=== PATIENT | male | born 1960 | race Caucasian/White ===

== ENCOUNTER 2022-12-19 09:13 | Inpatient (IN) | payer OTHER, MEDICARE ==
[~2022-12-19] VITALS: Ht 180.3 cm; Wt 88.5 kg
[2022-12-19] MEDS ORDERED: SODIUM CHLORIDE 0.9% 1000ML 1,000 ML IV STA (09:43)
[2022-12-19] MEDS ORDERED: ONDANSETRON HCL INJ 2MG/ML 2ML 2 MG/ML VIAL IV STA (09:43)
[2022-12-19] MEDS ORDERED: KETOROLAC TROMETHAMINE 30 MG/ML VIAL IV STA (09:43)
[2022-12-19] MEDS ORDERED: CEFTRIAXONE 1 GM VIAL ONE ×2 (09:58→15:34)
[2022-12-19 10:07] LABS: BASOPHILS # (AUTO) 0.1 (0.0-0.1); BASOPHILS % 0.2 % (0.0-1.0); HEMOGLOBIN 12.6 g/dL (14.0-18.0); LYMPHOCYTES % 2.7 % (18.0-39.1); MEAN CORPUSCULAR HEMOGLOBIN 31.9 pg (28-32); MEAN CORPUSCULAR HGB CONC 34.1 g/dL (31-35); MEAN CORPUSCULAR VOLUME 93.7 fL (81-99); MONOCYTES # (AUTO) 1.1 (0.2-0.8); MONOCYTES % 2.9 % (4.4-11.3); NEUTROPHILS # (AUTO) 35.6 (2.1-6.9); NEUTROPHILS % 93.3 % (38.7-80.0); PLATELET COUNT 553 x10e3/uL (140-360); RED BLOOD COUNT 3.95 x10e6/uL (4.3-5.7)
[2022-12-19 10:13] LABS: ALBUMIN 3.2 g/dL (3.5-5.0); ALBUMIN/GLOBULIN RATIO 0.6 (0.8-2.0); ANION GAP 17.2 mmol/L (8-16); CALCIUM 10.3 mg/dL (8.4-10.2); CREATININE, SERUM 1.57 mg/dL (0.72-1.25); MAGNESIUM 1.9 MG/DL (1.3-2.1); POTASSIUM 4.2 mmol/L (3.5-5.1)
[2022-12-19 10:24] LABS: CLARITY,URINE TURBID (CLEAR); COLOR,URINE YELLOW (YELLOW); KETONES,URINE NEGATIVE (NEGATIVE); LEUKOCYTE ESTERASE ,URINE SMALL (NEGATIVE); NITRITE,URINE NEGATIVE (NEGATIVE); PROTEIN,URINE DIPSTICK 2+ (NEGATIVE); URINE UROBILINOGEN 0.2 mg/dL (0.2 - 1)
[2022-12-19 10:25] LABS: BACTERIA,URINE MANY /HPF
[2022-12-19 10:28] LABS: TRIPLE PHOSPHATE CRYSTAL,UR FEW (FEW)
[2022-12-19] MEDS ORDERED: CEFTRIAXONE 1 GM VIAL IM ONE (10:45)
[2022-12-19 11:38] LABS: LYMPHOCYTES % (MANUAL) 2 % (19-48); MONOCYTES % (MANUAL) 3 % (3.4-9.0); NEUTROPHILS % (MANUAL) 95 % (40-74); PLATELET ESTIMATE SLIGHTLY INCREASED; PLATELET MORPHOLOGY COMMENT NORMAL; RBC MORPHOLOGY COMMENT NORMAL
[2022-12-19] MEDS ORDERED: ACETAMINOPHEN 1000 MG/100 ML IV PRN (11:45)
[2022-12-19] MEDS ORDERED: Vancomycin IV 1 GM in SODIUM CHLORIDE 0.9% 250ML 250 ML IV ONE (11:45)
[2022-12-19] MEDS: MEROPENEM 1 GM in SODIUM CHLORIDE 0.9% 100 ML IV SCH ×2 (11:48→20:55)
[2022-12-19 12:04] LABS: INR 1.12; PROTHROMBIN TIME 14.9 seconds (11.9-14.5)
[2022-12-19 12:05] LABS: PARTIAL THROMBOPLASTIN TIME 33.3 seconds (23.8-35.5)
[2022-12-19] MEDS: Morphine 2mg Syringe 2 MG/ML SYR IV PRN ×2 (13:02→23:43)
[2022-12-19] MEDS: ONDANSETRON HCL INJ 2MG/ML 2ML 2 MG/ML VIAL IV PRN ×2 (13:03→23:43)
[2022-12-19] MEDS: SODIUM CHLORIDE 0.9% 1000ML 1,000 ML IV SCH ×2 (13:03→20:58)
[2022-12-19 14:15] VITALS: BP 194/61
[2022-12-19 15:26] VITALS: BP 189/67
[2022-12-19] MEDS ORDERED: SODIUM CHLORIDE 0.9% 250ML 250 ML ONE ×2 (15:30→15:35)
[2022-12-19] MEDS ORDERED: LIDOCAINE HCL 1% LOCAL INJ 20 ML VIAL ONE (15:30)
[2022-12-19] MEDS ORDERED: MIDAZOLAM HCL 2 MG/2 ML VIAL ONE (15:34)
[2022-12-19] MEDS ORDERED: FENTANYL CITRATE/PF 100MCG/2 ML INJ ONE (15:35)
[2022-12-19] MEDS ORDERED: FENOFIBRATE145 MG PO (15:54)
[2022-12-19] MEDS ORDERED: DONEPEZIL HCL10 MG PO (15:54)
[2022-12-19] MEDS ORDERED: SIMVASTATIN20 MG PO (15:54)
[2022-12-19 16:15] VITALS: BP 189/67
[2022-12-19 16:16] VITALS: BP 189/67
[2022-12-19] MEDS ORDERED: IOPAMIDOL 610MG/1ML 300 MG/ML VIAL IV ONE (16:30)
[2022-12-19 20:00] VITALS: BP 174/61
[2022-12-19] MEDS: DONEPEZIL HCL 5 MG TAB PO SCH (20:55)
[2022-12-19] MEDS: FENOFIBRATE 145 MG TAB PO SCH (20:55)
[2022-12-19] MEDS: CLONIDINE HCL 0.1 MG TAB PO PRN (20:57)
[2022-12-19 21:00] VITALS: BP 174/61
[2022-12-20] VITALS (7 sets, daily range): BP systolic 159–184; BP diastolic 57–73
[2022-12-20] MEDS: ONDANSETRON HCL INJ 2MG/ML 2ML 2 MG/ML VIAL IV PRN ×2 (05:16→20:33)
[2022-12-20] MEDS: Morphine 2mg Syringe 2 MG/ML SYR IV PRN ×2 (05:16→20:34)
[2022-12-20] MEDS: HYDRALAZINE HCL 20 MG/ML VIAL IV PRN ×2 (05:20→15:58)
[2022-12-20] MEDS: SODIUM CHLORIDE 0.9% 1000ML 1,000 ML IV SCH ×3 (05:20→20:32)
[2022-12-20 06:25] LABS: BASOPHILS % 0.1 % (0.0-1.0); EOSINOPHILS % 0.1 % (0.0-6.0); HEMATOCRIT 31.3 % (38.2-49.6); HEMOGLOBIN 10.7 g/dL (14.0-18.0); LYMPHOCYTES # (AUTO) 1.3 (1.0-3.2); LYMPHOCYTES % 4.6 % (18.0-39.1); MEAN CORPUSCULAR HEMOGLOBIN 31.8 pg (28-32); MEAN CORPUSCULAR HGB CONC 34.2 g/dL (31-35); MEAN CORPUSCULAR VOLUME 92.9 fL (81-99); MONOCYTES # (AUTO) 0.8 (0.2-0.8); NEUTROPHILS # (AUTO) 24.9 (2.1-6.9); NEUTROPHILS % 91.6 % (38.7-80.0); PLATELET COUNT 361 x10e3/uL (140-360); RED BLOOD COUNT 3.37 x10e6/uL (4.3-5.7); RED CELL DISTRIBUTION WIDTH 13.8 % (11.7-14.4)
[2022-12-20 06:42] LABS: ALBUMIN 2.5 g/dL (3.5-5.0); ALBUMIN/GLOBULIN RATIO 0.6 (0.8-2.0); ANION GAP 12.6 mmol/L (8-16); CALCIUM 8.7 mg/dL (8.4-10.2); CREATININE, SERUM 0.92 mg/dL (0.72-1.25); POTASSIUM 3.6 mmol/L (3.5-5.1)
[2022-12-20] MEDS: SIMVASTATIN 20 MG TAB PO SCH (08:38)
[2022-12-20] MEDS: MEROPENEM 1 GM in SODIUM CHLORIDE 0.9% 100 ML IV SCH ×2 (08:38→20:33)
[2022-12-20 11:13] LABS: BAND NEUTROPHILS % (MANUAL) 5 %; LYMPHOCYTES % (MANUAL) 5 % (19-48); MONOCYTES % (MANUAL) 2 % (3.4-9.0); NEUTROPHILS % (MANUAL) 88 % (40-74)
[2022-12-20 11:15] LABS: PLATELET ESTIMATE ADEQUATE; PLATELET MORPHOLOGY COMMENT NORMAL
[2022-12-20] MEDS ORDERED: BISACODYL 5 MG TAB EC PO ONE (14:45)
[2022-12-20] MEDS: CLONIDINE HCL 0.1 MG TAB PO PRN (15:58)
[2022-12-20] MEDS: DONEPEZIL HCL 5 MG TAB PO SCH (20:33)
[2022-12-20] MEDS: FENOFIBRATE 145 MG TAB PO SCH (20:33)
[2022-12-21] VITALS (7 sets, daily range): BP systolic 143–191; BP diastolic 58–67
[2022-12-21] MEDS: SODIUM CHLORIDE 0.9% 1000ML 1,000 ML IV SCH ×3 (06:23→21:31)
[2022-12-21] MEDS: MEROPENEM 1 GM in SODIUM CHLORIDE 0.9% 100 ML IV SCH ×2 (08:46→21:25)
[2022-12-21] MEDS: SIMVASTATIN 20 MG TAB PO SCH ×2 (08:56→08:57)
[2022-12-21 13:54] LABS: BASOPHILS % 0.2 % (0.0-1.0); EOSINOPHILS # (AUTO) 0.1 (0.0-0.4); EOSINOPHILS % 0.5 % (0.0-6.0); HEMATOCRIT 32.8 % (38.2-49.6); LYMPHOCYTES # (AUTO) 1.9 (1.0-3.2); LYMPHOCYTES % 12.6 % (18.0-39.1); MEAN CORPUSCULAR HEMOGLOBIN 31.4 pg (28-32); MEAN CORPUSCULAR HGB CONC 33.5 g/dL (31-35); MEAN CORPUSCULAR VOLUME 93.7 fL (81-99); MONOCYTES # (AUTO) 0.9 (0.2-0.8); MONOCYTES % 5.6 % (4.4-11.3); NEUTROPHILS # (AUTO) 12.4 (2.1-6.9); NEUTROPHILS % 80.6 % (38.7-80.0); PLATELET COUNT 360 x10e3/uL (140-360); RED CELL DISTRIBUTION WIDTH 13.9 % (11.7-14.4)
[2022-12-21 14:26] LABS: CREATININE, SERUM 0.83 mg/dL (0.72-1.25)
[2022-12-21] MEDS: CLONIDINE HCL 0.1 MG TAB PO PRN (21:27)
[2022-12-21] MEDS: FENOFIBRATE 145 MG TAB PO SCH (21:27)
[2022-12-21] MEDS: DONEPEZIL HCL 5 MG TAB PO SCH (21:27)
[2022-12-22] MEDS ORDERED: BISACODYL 10 MG SUPP PR ONE ×2 (00:45→17:00)
[2022-12-22] MEDS: BISACODYL 10 MG SUPP PR PRN ×2 (01:31→17:00)
[2022-12-22 06:46] LABS: BASOPHILS % 0.3 % (0.0-1.0); EOSINOPHILS # (AUTO) 0.1 (0.0-0.4); EOSINOPHILS % 0.5 % (0.0-6.0); HEMOGLOBIN 10.4 g/dL (14.0-18.0); LYMPHOCYTES # (AUTO) 1.6 (1.0-3.2); LYMPHOCYTES % 12.7 % (18.0-39.1); MEAN CORPUSCULAR HEMOGLOBIN 32.5 pg (28-32); MEAN CORPUSCULAR HGB CONC 33.5 g/dL (31-35); MEAN CORPUSCULAR VOLUME 96.9 fL (81-99); MONOCYTES # (AUTO) 0.7 (0.2-0.8); MONOCYTES % 5.7 % (4.4-11.3); NEUTROPHILS # (AUTO) 10.3 (2.1-6.9); NEUTROPHILS % 80.3 % (38.7-80.0); PLATELET COUNT 337 x10e3/uL (140-360); RED CELL DISTRIBUTION WIDTH 13.8 % (11.7-14.4)
[2022-12-22 07:10] LABS: ANION GAP 13.5 mmol/L (8-16); CALCIUM 8.8 mg/dL (8.4-10.2); CREATININE, SERUM 0.85 mg/dL (0.72-1.25); POTASSIUM 3.5 mmol/L (3.5-5.1)
[2022-12-22 07:30] VITALS: BP 191/62
[2022-12-22 07:33] LABS: CHOL/HDL RATIO 3.6 (3.9-4.7); MAGNESIUM 1.6 MG/DL (1.3-2.1)
[2022-12-22 07:54] LABS: THYROID STIMULATING HORMONE 0.947 uIU/mL (0.350-4.940)
[2022-12-22] MEDS: NICOTINE 21 MG/EA PATCH TOP SCH (09:00)
[2022-12-22] MEDS: MEROPENEM 1 GM in SODIUM CHLORIDE 0.9% 100 ML IV SCH ×2 (09:36→21:00)
[2022-12-22] MEDS: SIMVASTATIN 20 MG TAB PO SCH (09:36)
[2022-12-22 09:51] VITALS: BP 169/58
[2022-12-22] MEDS: SODIUM CHLORIDE 0.9% 1000ML 1,000 ML IV SCH (11:37)
[2022-12-22] MEDS: AMLODIPINE BESYLATE 5 MG TAB PO SCH (11:37)
[2022-12-22 12:31] VITALS: BP 184/63
[2022-12-22] MEDS ORDERED: MAGNESIUM SULFATE 2GM/50ML 50 ML IV ONE (16:15)
[2022-12-22] MEDS ORDERED: MAGNESIUM HYDROXIDE 30 ML UDC PO ONE (17:00)
[2022-12-22] MEDS ORDERED: POTASSIUM CHLORIDE 20 MEQ TAB CR PO ONE (18:30)
[2022-12-22 20:00] VITALS: BP 174/78
[2022-12-22] MEDS: FENOFIBRATE 145 MG TAB PO SCH (21:58)
[2022-12-22] MEDS: DONEPEZIL HCL 5 MG TAB PO SCH (21:58)
[2022-12-23] MEDS: CLONIDINE HCL 0.1 MG TAB PO PRN (03:50)
[2022-12-23 04:00] VITALS: BP 193/68
[2022-12-23 06:11] LABS: BASOPHILS # (AUTO) 0.1 (0.0-0.1); BASOPHILS % 0.4 % (0.0-1.0); EOSINOPHILS # (AUTO) 0.1 (0.0-0.4); EOSINOPHILS % 0.9 % (0.0-6.0); HEMATOCRIT 32.7 % (38.2-49.6); HEMOGLOBIN 11.2 g/dL (14.0-18.0); LYMPHOCYTES # (AUTO) 2.5 (1.0-3.2); LYMPHOCYTES % 19.9 % (18.0-39.1); MEAN CORPUSCULAR HEMOGLOBIN 31.5 pg (28-32); MEAN CORPUSCULAR HGB CONC 34.3 g/dL (31-35); MEAN CORPUSCULAR VOLUME 92.1 fL (81-99); MONOCYTES # (AUTO) 0.7 (0.2-0.8); MONOCYTES % 5.3 % (4.4-11.3); NEUTROPHILS % 72.9 % (38.7-80.0); PLATELET COUNT 370 x10e3/uL (140-360); RED BLOOD COUNT 3.55 x10e6/uL (4.3-5.7); RED CELL DISTRIBUTION WIDTH 13.5 % (11.7-14.4)
[2022-12-23 06:47] LABS: ANION GAP 13.3 mmol/L (8-16); CALCIUM 8.6 mg/dL (8.4-10.2); CREATININE, SERUM 0.79 mg/dL (0.72-1.25); MAGNESIUM 1.7 MG/DL (1.3-2.1); PHOSPHORUS 2.3 MG/DL (2.3-4.7); POTASSIUM 3.3 mmol/L (3.5-5.1)
[2022-12-23 06:53] LABS: HIV 1&2 AB SCREEN NON-REACTIVE (NONREACTIVE)
[2022-12-23 08:14] VITALS: BP 156/67
[2022-12-23 08:29] VITALS: BP 156/67
[2022-12-23] MEDS: AMLODIPINE BESYLATE 5 MG TAB PO SCH (08:39)
[2022-12-23] MEDS: SIMVASTATIN 20 MG TAB PO SCH (08:39)
[2022-12-23] MEDS: MEROPENEM 1 GM in SODIUM CHLORIDE 0.9% 100 ML IV SCH (08:39)
[2022-12-23] MEDS: NICOTINE 21 MG/EA PATCH TOP SCH (08:40)
[2022-12-23] MEDS ORDERED: ONDANSETRON HCL 4 MG ORAL DISINTEGRATING TAB PO PRN (08:45)
[2022-12-23] MEDS ORDERED: MAGNESIUM SULFATE 2GM/50ML 50 ML IV ONE (09:15)
[2022-12-23] MEDS ORDERED: CIPROFLOXACIN 500 MG TAB PO SCH (09:45)
[2022-12-23] MEDS ORDERED: NORVASC5 MG PO (10:30)
[2022-12-23] MEDS ORDERED: ONDANSETRON ODT4 MG PO (10:30)
[2022-12-23] MEDS ORDERED: MAG-OXIDE400 MG PO (10:30)
[2022-12-23] MEDS ORDERED: MAGNESIUM OXIDE 400 MG TAB PO ONE (10:30)
[2022-12-23] MEDS ORDERED: NICODERM CQ1 EAC2 TOP (10:30)
[2022-12-23] MEDS ORDERED: CLONIDINE HCL0.1 MG PO (10:30)
[2022-12-23] MEDS ORDERED: CIPROFLOXACIN500 MG PO (10:30)
[2022-12-23] MEDS ORDERED: AMLODIPINE BESY10 MG PO (10:50)
[2022-12-23] MEDS ORDERED: POTASSIUM CHLORIDE 20 MEQ TAB CR PO ONE (11:30)
[2022-12-23] MEDS ORDERED: MAGNESIUM OXIDE 400 MG TAB PO SCH (17:00)
== END 2022-12-23 11:36 | disposition home or self-care (01) | DRG 872 ==
LOC: ER 09:23 → ERHOLD 11:49 → MED/SURG2 14:06
PROVIDERS: ADMIT Internal Medicine; ATTEND Internal Medicine
PROC: 0T9030Z Drainage of Right Kidney with Drainage Device, Percutaneous Approach (ICD-10-PCS; principal; 2022-12-19)
DX: A41.9 Sepsis, unspecified organism (principal); N13.2 Hydronephrosis with renal and ureteral calculous obstruction; Z16.11 Resistance to penicillins; N12 Tubulo-interstitial nephritis, not specified as acute or chronic; N39.0 Urinary tract infection, site not specified; K56.7 Ileus, unspecified; N17.9 Acute kidney failure, unspecified; Z90.6 Acquired absence of other parts of urinary tract; I49.5 Sick sinus syndrome; F03.A0 Unspecified dementia, mild, without behavioral disturbance, psychotic disturbance, mood disturbance, and anxiety; C67.9 Malignant neoplasm of bladder, unspecified; I10 Essential (primary) hypertension; D64.9 Anemia, unspecified; E78.00 Pure hypercholesterolemia, unspecified; J44.9 Chronic obstructive pulmonary disease, unspecified; F17.210 Nicotine dependence, cigarettes, uncomplicated; B96.5 Pseudomonas (aeruginosa) (mallei) (pseudomallei) as the cause of diseases classified elsewhere; E83.42 Hypomagnesemia; E87.6 Hypokalemia; Z20.822 Contact with and (suspected) exposure to COVID-19; Z93.6 Other artificial openings of urinary tract status; Z88.0 Allergy status to penicillin; Z85.46 Personal history of malignant neoplasm of prostate
CPT/HCPCS: 36415; 50432; 74018; 74176; 74470; 76942; 80048; 80053; 80061; 81001; 83735; 84100; 84443; 85025; 85610; 85730; 86803; 87040; 87086; 87186; 87340; 87390; 93306; 99152; 99153; 99284; C1769; G0433; G0435; J0696; J1885; J2001; J2185; J2250; J2270; J2405; J3475; J7030; J7050; Q0162

== ENCOUNTER → 2023-01-01 | Day surgery (SDC) | payer MEDICARE, OTHER ==
[~2023-01-01] MED LIST: ACETAMINOPHEN 1000 MG/100 ML 100 ML IV ONE; AMLODIPINE BESY10 MG PO; ATROPINE SULFATE 1 MG/ML VIAL ONE; CIPROFLOXACIN500 MG PO; CLONIDINE HCL0.1 MG PO; DEXAMETHASONE SOD PHOS INJ 4 MG/ML SDV ONE; DONEPEZIL HCL10 MG PO; EPHEDRINE SULFATE INJ 50 MG/ML VIAL ONE; FENOFIBRATE145 MG PO; FENTANYL CITRATE/PF 100MCG/2 ML INJ ONE; GENTAMICIN 80MG/NS 100 ML 200 ML IV ONE; IOPAMIDOL 610MG/1ML 300 MG/ML VIAL IV ONE; LACTATED RINGER'S 1,000 ML ONE; LIDOCAINE HCL 2% LOCAL INJ 5 ML SDV VIAL INJ ONE; MAG-OXIDE400 MG PO; MIDAZOLAM HCL 2 MG/2 ML VIAL ONE; NICODERM CQ1 EAC2 TOP; NORVASC5 MG PO; ONDANSETRON HCL INJ 2MG/ML 2ML 2 MG/ML VIAL ONE; ONDANSETRON ODT4 MG PO; POVIDONE IODINE 0.05% 0.05 % ML PO ONE; PROPOFOL IV EMULSION 10 MG/ML 20 ML VIAL ONE; SEVOFLURANE INHAL SOLN 250 ML PEN BTL ONE; SIMVASTATIN20 MG PO
[2023-01-01 08:05] VITALS: BP 130/69
== END | disposition home or self-care (01) ==
LOC: OR 05:25
PROVIDERS: ATTEND Urology
DX: N20.1 Calculus of ureter (principal); Z93.6 Other artificial openings of urinary tract status; N39.0 Urinary tract infection, site not specified; Z85.51 Personal history of malignant neoplasm of bladder; R03.0 Elevated blood-pressure reading, without diagnosis of hypertension; Z88.0 Allergy status to penicillin; Z79.899 Other long term (current) drug therapy; Z87.891 Personal history of nicotine dependence; Z84.1 Family history of disorders of kidney and ureter
CPT/HCPCS: 50590; J0131; J0461; J1100; J1580; J2001; J2250; J2405; J2704; J3010; J7121

== ENCOUNTER → 2023-01-11 | Outpatient (CLI) | payer OTHER ==
[~2023-01-11] MED LIST changes: -ACETAMINOPHEN 1000 MG/100 ML 100 ML IV ONE; -ATROPINE SULFATE 1 MG/ML VIAL ONE; -DEXAMETHASONE SOD PHOS INJ 4 MG/ML SDV ONE; -EPHEDRINE SULFATE INJ 50 MG/ML VIAL ONE; -FENTANYL CITRATE/PF 100MCG/2 ML INJ ONE; -GENTAMICIN 80MG/NS 100 ML 200 ML IV ONE; +IOPAMIDOL 370 MG/ML 100 ML INFUS..BTL INJ ONE; -IOPAMIDOL 610MG/1ML 300 MG/ML VIAL IV ONE; -LACTATED RINGER'S 1,000 ML ONE; +LIDOCAINE HCL 1% LOCAL INJ 20 ML VIAL ONE; -LIDOCAINE HCL 2% LOCAL INJ 5 ML SDV VIAL INJ ONE; -MIDAZOLAM HCL 2 MG/2 ML VIAL ONE; -ONDANSETRON HCL INJ 2MG/ML 2ML 2 MG/ML VIAL ONE; -POVIDONE IODINE 0.05% 0.05 % ML PO ONE; -PROPOFOL IV EMULSION 10 MG/ML 20 ML VIAL ONE; -SEVOFLURANE INHAL SOLN 250 ML PEN BTL ONE; +SODIUM CHLORIDE 0.9% 250ML 250 ML ONE
== END ==
LOC: DX 10:21
PROVIDERS: ATTEND Urology
DX: N13.30 Unspecified hydronephrosis (principal); T19.9XXD Foreign body in genitourinary tract, part unspecified, subsequent encounter
CPT/HCPCS: C1729; C1769; J2001; J7050; Q9967; 50435

== ENCOUNTER → 2023-12-17 | Day surgery (SDC) | payer MEDICARE, BC ==
[2023-12-13 13:16] LABS: BASOPHILS # (AUTO) 0.1 (0.0-0.1); BASOPHILS % 0.8 % (0.0-1.0); EOSINOPHILS # (AUTO) 0.3 (0.0-0.4); HEMATOCRIT 37.8 % (38.2-49.6); HEMOGLOBIN 12.9 g/dL (14.0-18.0); LYMPHOCYTES # (AUTO) 2.8 (1.0-3.2); LYMPHOCYTES % 30.9 % (18.0-39.1); MEAN CORPUSCULAR HEMOGLOBIN 32.1 pg (28-32); MEAN CORPUSCULAR HGB CONC 34.1 g/dL (31-35); MONOCYTES # (AUTO) 0.8 (0.2-0.8); MONOCYTES % 8.2 % (4.4-11.3); NEUTROPHILS # (AUTO) 5.2 (2.1-6.9); NEUTROPHILS % 56.9 % (38.7-80.0); PLATELET COUNT 249 x10e3/uL (140-360); RED BLOOD COUNT 4.02 x10e6/uL (4.3-5.7); RED CELL DISTRIBUTION WIDTH 13.6 % (11.7-14.4)
[~2023-12-17] MED LIST changes: +ACETAMINOPHEN 1000 MG/100 ML 100 ML IV ONE; +CEPHALEXIN500 MG PO; +CRESTOR10 MG PO; +DEXAMETHASONE SOD PHOS INJ 4 MG/ML SDV ONE; +EPHEDRINE SULFATE INJ 50 MG/ML VIAL ONE; +FENTANYL CITRATE/PF 100MCG/2 ML INJ ONE; +GENTAMICIN 80MG/NS 100 ML 100 ML IV ONE; -IOPAMIDOL 370 MG/ML 100 ML INFUS..BTL INJ ONE; +LACTATED RINGER'S 1,000 ML ONE; -LIDOCAINE HCL 1% LOCAL INJ 20 ML VIAL ONE; +LIDOCAINE HCL 2% LOCAL INJ 5 ML SDV VIAL INJ ONE; +MULTI-VITAMIN1 EACH PO; +MUPIROCIN22 GM TOP; +NAMENDA10 MG PO; +ONDANSETRON HCL INJ 2MG/ML 2ML 2 MG/ML VIAL ONE; +PROPOFOL IV EMULSION 10 MG/ML 20 ML VIAL ONE; +SEVOFLURANE INHAL SOLN 250 ML PEN BTL ONE; -SODIUM CHLORIDE 0.9% 250ML 250 ML ONE; +SULFA PO; +TRIMETHOPRIM PO
[2023-12-17 08:26] VITALS: BP 129/86; PULSE 48; RESP 18; O2SAT 98
== END | disposition home or self-care (01) ==
LOC: OR 05:20
PROVIDERS: ATTEND Urology
DX: N20.0 Calculus of kidney (principal); Z98.890 Other specified postprocedural states; N39.0 Urinary tract infection, site not specified; I10 Essential (primary) hypertension; E78.5 Hyperlipidemia, unspecified; G47.33 Obstructive sleep apnea (adult) (pediatric); F03.90 Unspecified dementia, unspecified severity, without behavioral disturbance, psychotic disturbance, mood disturbance, and anxiety; Z88.0 Allergy status to penicillin; Z01.810 Encounter for preprocedural cardiovascular examination; Z01.812 Encounter for preprocedural laboratory examination; Z01.818 Encounter for other preprocedural examination; Z79.899 Other long term (current) drug therapy; Z85.46 Personal history of malignant neoplasm of prostate; Z85.51 Personal history of malignant neoplasm of bladder
CPT/HCPCS: 36415; 50590; 74018; 85025; 93005; J0131; J1100; J1580; J2001; J2405; J2704; J3010; J7121

== ENCOUNTER → 2024-02-29 | Outpatient (REF) | payer MEDICARE, BC ==
[~2024-02-29] MED LIST changes: -ACETAMINOPHEN 1000 MG/100 ML 100 ML IV ONE; -DEXAMETHASONE SOD PHOS INJ 4 MG/ML SDV ONE; -EPHEDRINE SULFATE INJ 50 MG/ML VIAL ONE; -FENTANYL CITRATE/PF 100MCG/2 ML INJ ONE; -GENTAMICIN 80MG/NS 100 ML 100 ML IV ONE; -LACTATED RINGER'S 1,000 ML ONE; -LIDOCAINE HCL 2% LOCAL INJ 5 ML SDV VIAL INJ ONE; -ONDANSETRON HCL INJ 2MG/ML 2ML 2 MG/ML VIAL ONE; -PROPOFOL IV EMULSION 10 MG/ML 20 ML VIAL ONE; -SEVOFLURANE INHAL SOLN 250 ML PEN BTL ONE
== END ==
LOC: RAD 16:23
PROVIDERS: ATTEND Urology
DX: N20.0 Calculus of kidney (principal)
CPT/HCPCS: 74018

== ENCOUNTER → 2024-06-16 | Day surgery (SDC) | payer MEDICARE, BC ==
[2024-06-12 14:11] LABS: BASOPHILS # (AUTO) 0.1 (0.0-0.1); BASOPHILS % 0.7 % (0.0-1.0); EOSINOPHILS # (AUTO) 0.3 (0.0-0.4); EOSINOPHILS % 2.9 % (0.0-6.0); HEMOGLOBIN 12.7 g/dL (14.0-18.0); LYMPHOCYTES # (AUTO) 2.6 (1.0-3.2); LYMPHOCYTES % 26.7 % (18.0-39.1); MEAN CORPUSCULAR HEMOGLOBIN 32.7 pg (28-32); MEAN CORPUSCULAR HGB CONC 33.4 g/dL (31-35); MEAN CORPUSCULAR VOLUME 97.9 fL (81-99); MONOCYTES # (AUTO) 0.6 (0.2-0.8); MONOCYTES % 6.4 % (4.4-11.3); NEUTROPHILS # (AUTO) 6.2 (2.1-6.9); NEUTROPHILS % 63.1 % (38.7-80.0); PLATELET COUNT 227 x10e3/uL (140-360); RED BLOOD COUNT 3.88 x10e6/uL (4.3-5.7); WHITE BLOOD COUNT 9.82 x10e3/uL (4.8-10.8)
[~2024-06-16] MED LIST changes: +CEFTRIAXONE 1 GM VIAL ONE; +EPHEDRINE SULFATE INJ 50 MG/ML VIAL ONE; +GENTAMICIN 80MG/NS 100 ML 100 ML IV ONE; +GLYCOPYRROLATE INJ 0.2 MG/ML VIAL ONE; +IOPAMIDOL 610MG/1ML 300 MG/ML VIAL IV ONE; +LACTATED RINGER'S 1,000 ML ONE; +LIDOCAINE HCL 2% LOCAL INJ 5 ML SDV VIAL INJ ONE; +ONDANSETRON HCL INJ 2MG/ML 2ML 2 MG/ML VIAL ONE; +PROPOFOL IV EMULSION 10 MG/ML 20 ML VIAL ONE; +SEVOFLURANE INHAL SOLN 250 ML PEN BTL ONE; +ZETIA10 MG PO
[2024-06-16 07:43] VITALS: TEMP 97.5
[2024-06-16 08:45] VITALS: BP 127/70; PULSE 57; RESP 17; O2SAT 98
== END | disposition home or self-care (01) ==
LOC: OR 06:16
PROVIDERS: ATTEND Urology
DX: N20.0 Calculus of kidney (principal); Z85.46 Personal history of malignant neoplasm of prostate; Z85.51 Personal history of malignant neoplasm of bladder; Z90.79 Acquired absence of other genital organ(s); Z90.6 Acquired absence of other parts of urinary tract; Z93.6 Other artificial openings of urinary tract status; Z87.440 Personal history of urinary (tract) infections; I10 Essential (primary) hypertension; R00.1 Bradycardia, unspecified; I49.1 Atrial premature depolarization; E78.5 Hyperlipidemia, unspecified; G47.33 Obstructive sleep apnea (adult) (pediatric); F17.200 Nicotine dependence, unspecified, uncomplicated; F03.90 Unspecified dementia, unspecified severity, without behavioral disturbance, psychotic disturbance, mood disturbance, and anxiety; Z01.810 Encounter for preprocedural cardiovascular examination; Z01.812 Encounter for preprocedural laboratory examination; Z01.818 Encounter for other preprocedural examination; Z79.899 Other long term (current) drug therapy
CPT/HCPCS: 36415; 50590; 52005; 71046; 74018; 85025; 93005; J1580; J2003; J2405; J2704; J7121; Q9967; J0696

== ENCOUNTER → 2024-07-07 | Day surgery (SDC) | payer MEDICARE, BC ==
[~2024-07-07] MED LIST changes: +ACETAMINOPHEN 1000 MG/100 ML 100 ML IV ONE; -CEFTRIAXONE 1 GM VIAL ONE; +DEXAMETHASONE SOD PHOS INJ 4 MG/ML SDV ONE; +FENTANYL CITRATE/PF 100MCG/2 ML INJ ONE; -GENTAMICIN 80MG/NS 100 ML 100 ML IV ONE; -GLYCOPYRROLATE INJ 0.2 MG/ML VIAL ONE; -IOPAMIDOL 610MG/1ML 300 MG/ML VIAL IV ONE; -SEVOFLURANE INHAL SOLN 250 ML PEN BTL ONE; +SODIUM CHLORIDE 0.9% INJ 10 ML VIAL ONE
[2024-07-07] MEDS: LEVOFLOXACIN 500MG/D5W 100ML 100 ML IV ONE (05:59)
[2024-07-07] MEDS: LACTATED RINGER'S 1,000 ML ONE (05:59)
[2024-07-07 08:30] VITALS: TEMP 97.6
[2024-07-07 09:20] VITALS: BP 121/56; PULSE 48; RESP 16; O2SAT 100
== END | disposition home or self-care (01) ==
LOC: OR 05:25
PROVIDERS: ATTEND Urology
DX: N20.0 Calculus of kidney (principal); Z85.51 Personal history of malignant neoplasm of bladder; Z85.46 Personal history of malignant neoplasm of prostate; N13.30 Unspecified hydronephrosis; N39.0 Urinary tract infection, site not specified; G47.33 Obstructive sleep apnea (adult) (pediatric); I10 Essential (primary) hypertension; D35.02 Benign neoplasm of left adrenal gland; I25.10 Atherosclerotic heart disease of native coronary artery without angina pectoris; E78.5 Hyperlipidemia, unspecified; F03.90 Unspecified dementia, unspecified severity, without behavioral disturbance, psychotic disturbance, mood disturbance, and anxiety; Z88.0 Allergy status to penicillin; Z01.818 Encounter for other preprocedural examination; Z79.899 Other long term (current) drug therapy; Z87.891 Personal history of nicotine dependence; Z84.1 Family history of disorders of kidney and ureter
CPT/HCPCS: 50590; 74018; J0131; J1100; J1956; J2003; J2405; J2704; J3010; J7121

== ENCOUNTER → 2024-10-09 | Outpatient (REF) | payer MEDICARE, BC ==
[~2024-10-09] MED LIST changes: -ACETAMINOPHEN 1000 MG/100 ML 100 ML IV ONE; -DEXAMETHASONE SOD PHOS INJ 4 MG/ML SDV ONE; -EPHEDRINE SULFATE INJ 50 MG/ML VIAL ONE; -FENTANYL CITRATE/PF 100MCG/2 ML INJ ONE; -LACTATED RINGER'S 1,000 ML ONE; -LIDOCAINE HCL 2% LOCAL INJ 5 ML SDV VIAL INJ ONE; -ONDANSETRON HCL INJ 2MG/ML 2ML 2 MG/ML VIAL ONE; -PROPOFOL IV EMULSION 10 MG/ML 20 ML VIAL ONE; -SODIUM CHLORIDE 0.9% INJ 10 ML VIAL ONE
== END ==
LOC: RAD 13:57
PROVIDERS: ATTEND Urology
DX: N20.0 Calculus of kidney (principal)
CPT/HCPCS: 74018

== ENCOUNTER 2024-11-02 08:11 | Inpatient (IN) | payer MEDICARE, BC ==
[2024-11-02] VITALS (12 sets, daily range): BP systolic 141–152; BP diastolic 59–75; PULSE 73–101; RESP 18–31; TEMP 98.8–100.3; O2SAT 94–97
[~2024-11-02] VITALS: Ht 180.3 cm; Wt 82.1 kg
[2024-11-02] MEDS: ACETAMINOPHEN 325 MG TAB PO STA (08:55)
[2024-11-02 09:13] LABS: BASOPHILS # (AUTO) 0.1 (0.0-0.1); BASOPHILS % 0.2 % (0.0-1.0); EOSINOPHILS # (AUTO) 0.1 (0.0-0.4); EOSINOPHILS % 0.4 % (0.0-6.0); HEMATOCRIT 43.4 % (38.2-49.6); HEMOGLOBIN 15.3 g/dL (14.0-18.0); LYMPHOCYTES # (AUTO) 0.8 (1.0-3.2); LYMPHOCYTES % 2.1 % (18.0-39.1); MEAN CORPUSCULAR HEMOGLOBIN 32.1 pg (28-32); MEAN CORPUSCULAR HGB CONC 35.3 g/dL (31-35); MEAN CORPUSCULAR VOLUME 91.2 fL (81-99); MONOCYTES # (AUTO) 1.2 (0.2-0.8); MONOCYTES % 3.4 % (4.4-11.3); NEUTROPHILS # (AUTO) 32.8 (2.1-6.9); NEUTROPHILS % 92.6 % (38.7-80.0); PLATELET COUNT 231 x10e3/uL (140-360); RED BLOOD COUNT 4.76 x10e6/uL (4.3-5.7); RED CELL DISTRIBUTION WIDTH 13.2 % (11.7-14.4); WHITE BLOOD COUNT 35.44 x10e3/uL (4.8-10.8)
[2024-11-02 09:52] LABS: ALANINE AMINOTRANSFERASE 21 IU/L (0-55); ALBUMIN 3.4 g/dL (3.5-5.0); ALBUMIN/GLOBULIN RATIO 0.8 (0.8-2.0); ALKALINE PHOSPHATASE 76 IU/L (40-150); ANION GAP 18.9 mmol/L (8-16); BILIRUBIN,TOTAL 0.9 mg/dL (0.2-1.2); BLOOD UREA NITROGEN 17 mg/dL (7-26); BUN/CREATININE RATIO 14 (6-25); CALCIUM 9.7 mg/dL (8.4-10.2); CARBON DIOXIDE 18 mmol/L (22-29); CHLORIDE 104 mmol/L (98-107); CREATINE KINASE 81 IU/L (30-200); CREATININE, SERUM 1.23 mg/dL (0.72-1.25); EST GLOMERULAR FILTRATION RATE 65 ML/MIN (>=60); GLUCOSE 128 mg/dL (74-118); POTASSIUM 3.9 mmol/L (3.5-5.1); SODIUM 137 mmol/L (136-145); TOTAL PROTEIN 7.5 g/dL (6.5-8.1)
[2024-11-02 09:56] LABS: TROPONIN I < 0.001 ng/mL (0-0.300)
[2024-11-02] MEDS ORDERED: IOPAMIDOL 370 MG/ML 100 ML INFUS..BTL INJ ONE (10:00)
[2024-11-02 11:42] LABS: INR 1.35; PARTIAL THROMBOPLASTIN TIME 36.4 seconds (23.8-35.5); PROTHROMBIN TIME 17.4 seconds (11.9-14.5)
[2024-11-02] MEDS ORDERED: Morphine 4mg INJECTION 4 MG/ML INJ IV PRN (11:45)
[2024-11-02] MEDS ORDERED: ONDANSETRON HCL INJ 2MG/ML 2ML 2 MG/ML VIAL IV PRN (11:45)
[2024-11-02 11:50] LABS: CLARITY,URINE SL CLOUDY (CLEAR); COLOR,URINE YELLOW (YELLOW); PH,URINE 6.5 (5 - 7)
[2024-11-02 11:51] LABS: BACTERIA,URINE MODERATE /HPF; BILIRUBIN,URINE NEGATIVE (NEGATIVE); EPITHELIAL CELLS,URINE FEW /LPF; GLUCOSE, URINE NEGATIVE (NEGATIVE); KETONES,URINE TRACE (NEGATIVE); LEUKOCYTE ESTERASE ,URINE MODERATE (NEGATIVE); NITRITE,URINE NEGATIVE (NEGATIVE); PROTEIN,URINE DIPSTICK 2+ (NEGATIVE); URINE UROBILINOGEN 0.2 mg/dL (0.2 - 1); WBC,URINE (MAN) 21-50 /HPF (0-5)
[2024-11-02 12:00] LABS: RBC,URINE 0-5 /HPF (0-5); RENAL EPITHELIAL CELLS,URINE RARE
[2024-11-02] MEDS: SODIUM CHLORIDE 0.9% 1000ML 1,000 ML IV SCH (12:19)
[2024-11-02 12:22] LABS: CORONAVIRUS COVID-19 AG NEGATIVE (NEGATIVE); INFLUENZA A AG NEGATIVE (NEGATIVE); INFLUENZA B AG NEGATIVE (NEGATIVE)
[2024-11-02] MEDS: NICOTINE 7 MG PATCH TOP STA (15:22)
[2024-11-02] MEDS ORDERED: SODIUM CHLORIDE 0.45% 1,000 ML IV ONE (15:30)
[2024-11-02] MEDS ORDERED: ACETAMINOPHEN 325 MG TAB PO PRN (15:45)
[2024-11-02] MEDS ORDERED: SODIUM CHLORIDE 0.9% 100 ML ONE (17:30)
[2024-11-02] MEDS: MEROPENEM 1 GM in SODIUM CHLORIDE 0.9% 100 ML IV SCH (17:37)
[2024-11-02] MEDS: SODIUM BICARBONATE 8.4% VIAL 50 ML in SODIUM CHLORIDE 0.45% 1,000 ML IV ONE (17:37)
[2024-11-02] MEDS: SIMVASTATIN 40 MG TAB PO SCH (20:24)
[2024-11-03] VITALS (24 sets, daily range): BP systolic 128–167; BP diastolic 50–67; PULSE 62–88; RESP 17–28; TEMP 98.2–100.3; O2SAT 92–100
[2024-11-03 07:50] LABS: BASOPHILS % 0.1 % (0.0-1.0); EOSINOPHILS # (AUTO) 0.4 (0.0-0.4); HEMATOCRIT 35.3 % (38.2-49.6); HEMOGLOBIN 12.3 g/dL (14.0-18.0); LYMPHOCYTES # (AUTO) 1.2 (1.0-3.2); LYMPHOCYTES % 6.8 % (18.0-39.1); MEAN CORPUSCULAR HEMOGLOBIN 31.9 pg (28-32); MEAN CORPUSCULAR HGB CONC 34.8 g/dL (31-35); MEAN CORPUSCULAR VOLUME 91.5 fL (81-99); MONOCYTES # (AUTO) 0.9 (0.2-0.8); MONOCYTES % 5.1 % (4.4-11.3); NEUTROPHILS # (AUTO) 15.3 (2.1-6.9); NEUTROPHILS % 85.7 % (38.7-80.0); PLATELET COUNT 170 x10e3/uL (140-360); RED BLOOD COUNT 3.86 x10e6/uL (4.3-5.7); RED CELL DISTRIBUTION WIDTH 13.4 % (11.7-14.4); WHITE BLOOD COUNT 17.89 x10e3/uL (4.8-10.8)
[2024-11-03 08:11] LABS: ALBUMIN 2.4 g/dL (3.5-5.0); ALBUMIN/GLOBULIN RATIO 0.7 (0.8-2.0); ANION GAP 11.8 mmol/L (8-16); BILIRUBIN,TOTAL 0.5 mg/dL (0.2-1.2); CALCIUM 8.8 mg/dL (8.4-10.2); CREATININE, SERUM 0.88 mg/dL (0.72-1.25); POTASSIUM 3.8 mmol/L (3.5-5.1)
[2024-11-03] MEDS ORDERED: ALBUTEROL/IPRATROPIUM 3 ML NEB NEB PRN (08:30)
[2024-11-03 08:31] LABS: CREATINE KINASE 66 IU/L (30-200)
[2024-11-03 08:37] LABS: TROPONIN I < 0.001 ng/mL (0-0.300)
[2024-11-03] MEDS ORDERED: SODIUM CHLORIDE 0.9% 250ML 250 ML ONE (12:33)
[2024-11-03] MEDS: MULTIVITAMINS/MINERALS TAB PO SCH (12:44)
[2024-11-03 15:42] LABS: TROPONIN I 0.001 ng/mL (0-0.300)
[2024-11-04] VITALS (13 sets, daily range): BP systolic 123–151; BP diastolic 55–74; PULSE 61–116; RESP 15–22; TEMP 97.9–98.6; O2SAT 72–99
[2024-11-04] MEDS: MELATONIN 3 MG TAB PO SCH (00:58)
[2024-11-04 07:23] LABS: BASOPHILS % 0.2 % (0.0-1.0); EOSINOPHILS # (AUTO) 0.5 (0.0-0.4); EOSINOPHILS % 4.5 % (0.0-6.0); HEMATOCRIT 36.5 % (38.2-49.6); HEMOGLOBIN 12.8 g/dL (14.0-18.0); LYMPHOCYTES # (AUTO) 1.3 (1.0-3.2); LYMPHOCYTES % 11.8 % (18.0-39.1); MEAN CORPUSCULAR HEMOGLOBIN 31.8 pg (28-32); MEAN CORPUSCULAR HGB CONC 35.1 g/dL (31-35); MEAN CORPUSCULAR VOLUME 90.8 fL (81-99); MONOCYTES # (AUTO) 0.7 (0.2-0.8); MONOCYTES % 6.2 % (4.4-11.3); NEUTROPHILS # (AUTO) 8.3 (2.1-6.9); PLATELET COUNT 206 x10e3/uL (140-360); RED BLOOD COUNT 4.02 x10e6/uL (4.3-5.7); RED CELL DISTRIBUTION WIDTH 13.3 % (11.7-14.4)
[2024-11-04 07:51] LABS: ANION GAP 13.6 mmol/L (8-16); CALCIUM 8.9 mg/dL (8.4-10.2); CREATININE, SERUM 0.71 mg/dL (0.72-1.25); POTASSIUM 3.6 mmol/L (3.5-5.1)
[2024-11-04] MEDS: NICOTINE 7 MG PATCH TOP SCH (11:49)
[2024-11-04] MEDS: AMLODIPINE BESYLATE 10 MG TAB PO ONE (17:05)
[2024-11-04] MEDS: EZETIMIBE 10 MG TAB PO SCH (20:15)
[2024-11-04] MEDS: DONEPEZIL HCL 5 MG TAB PO SCH (20:15)
[2024-11-04] MEDS: MEMANTINE 10 MG TAB PO SCH (20:15)
[2024-11-04] MEDS: ZIPRASIDONE 20 MG VIAL IM STA (22:30)
[2024-11-05] MEDS: LORAZEPAM INJ 2 MG/ML VIAL IV ONE (00:22)
[2024-11-05 04:00] VITALS: BP 144/71; PULSE 93; RESP 18; TEMP 97.9; O2SAT 100
[2024-11-05 05:10] LABS: BASOPHILS % 0.2 % (0.0-1.0); EOSINOPHILS # (AUTO) 0.6 (0.0-0.4); EOSINOPHILS % 4.9 % (0.0-6.0); HEMATOCRIT 37.8 % (38.2-49.6); HEMOGLOBIN 12.9 g/dL (14.0-18.0); LYMPHOCYTES % 16.3 % (18.0-39.1); MEAN CORPUSCULAR HEMOGLOBIN 31.6 pg (28-32); MEAN CORPUSCULAR HGB CONC 34.1 g/dL (31-35); MEAN CORPUSCULAR VOLUME 92.6 fL (81-99); MONOCYTES # (AUTO) 0.8 (0.2-0.8); MONOCYTES % 6.2 % (4.4-11.3); NEUTROPHILS # (AUTO) 8.9 (2.1-6.9); NEUTROPHILS % 71.9 % (38.7-80.0); PLATELET COUNT 249 x10e3/uL (140-360); RED BLOOD COUNT 4.08 x10e6/uL (4.3-5.7); RED CELL DISTRIBUTION WIDTH 13.4 % (11.7-14.4); WHITE BLOOD COUNT 12.35 x10e3/uL (4.8-10.8)
[2024-11-05 05:40] LABS: ALBUMIN 2.7 g/dL (3.5-5.0); ALBUMIN/GLOBULIN RATIO 0.6 (0.8-2.0); ANION GAP 15.5 mmol/L (8-16); BILIRUBIN,TOTAL 0.4 mg/dL (0.2-1.2); CALCIUM 9.5 mg/dL (8.4-10.2); CREATININE, SERUM 0.8 mg/dL (0.72-1.25); POTASSIUM 3.5 mmol/L (3.5-5.1); TOTAL PROTEIN 6.9 g/dL (6.5-8.1)
[2024-11-05 08:00] VITALS: BP 139/70; PULSE 84; RESP 17; TEMP 98.8; O2SAT 96
[2024-11-05 09:00] VITALS: BP 139/70; PULSE 84; RESP 17; TEMP 98.8; O2SAT 96
[2024-11-05] MEDS: AMLODIPINE BESYLATE 10 MG TAB PO SCH (10:25)
[2024-11-05 10:47] VITALS: PULSE 63; RESP 18; O2SAT 93
[2024-11-05] MEDS: ALBUTEROL/IPRATROPIUM 3 ML NEB NEB ONE (11:25)
[2024-11-05 12:00] VITALS: BP 136/60; PULSE 65; RESP 16; TEMP 98.1; O2SAT 97
== END 2024-11-05 15:58 | disposition home or self-care (01) | DRG 193 ==
LOC: ER 08:23 → ERHOLD 11:38 → ICU 15:45 → MED/SURG 11-04 06:15
PROVIDERS: ADMIT Internal Medicine; ATTEND Internal Medicine
DX: J18.9 Pneumonia, unspecified organism (principal); G93.41 Metabolic encephalopathy; J96.01 Acute respiratory failure with hypoxia; E87.20 Acidosis, unspecified; N17.9 Acute kidney failure, unspecified; N39.0 Urinary tract infection, site not specified; T36.95XA Adverse effect of unspecified systemic antibiotic, initial encounter; J84.89 Other specified interstitial pulmonary diseases; G30.9 Alzheimer's disease, unspecified; F02.80 Dementia in other diseases classified elsewhere, unspecified severity, without behavioral disturbance, psychotic disturbance, mood disturbance, and anxiety; N20.0 Calculus of kidney; D35.02 Benign neoplasm of left adrenal gland; I10 Essential (primary) hypertension; E78.5 Hyperlipidemia, unspecified; L27.0 Generalized skin eruption due to drugs and medicaments taken internally; K27.9 Peptic ulcer, site unspecified, unspecified as acute or chronic, without hemorrhage or perforation; R31.29 Other microscopic hematuria; Z11.52 Encounter for screening for COVID-19; Z93.2 Ileostomy status; Z90.6 Acquired absence of other parts of urinary tract; Z85.51 Personal history of malignant neoplasm of bladder; Z88.0 Allergy status to penicillin
CPT/HCPCS: 36415; 71045; 71260; 74176; 80048; 80053; 81001; 82550; 83605; 83690; 83880; 84484; 85025; 85610; 85730; 87040; 87086; 93005; 93306; 94799; 99252; 99284; J0696; J2060; J2185; J3486; J7030; J7050; Q9967

== ENCOUNTER → 2025-01-26 | Day surgery (SDC) | payer MEDICARE, BC ==
[~2025-01-26] MED LIST changes: +DEXAMETHASONE SOD PHOS INJ 4 MG/ML SDV ONE; +FENTANYL CITRATE/PF 100MCG/2 ML INJ ONE; +LIDOCAINE HCL 2% LOCAL INJ 5 ML SDV VIAL INJ ONE; +ONDANSETRON HCL INJ 2MG/ML 2ML 2 MG/ML VIAL ONE; +PROPOFOL IV EMULSION 10 MG/ML 20 ML VIAL ONE; +SUCCINYLCHOLINE CHLORIDE 20 MG/ML 10ML VIAL ONE
[2025-01-26] MEDS: LACTATED RINGER'S 1,000 ML ONE (05:59)
[2025-01-26] MEDS: GENTAMICIN 80MG/NS 100 ML 100 ML IV ONE (05:59)
[2025-01-26 07:43] VITALS: TEMP 97.8
[2025-01-26 08:30] VITALS: BP 139/70; PULSE 56; RESP 18; O2SAT 99
== END | disposition home or self-care (01) ==
LOC: OR 05:20
PROVIDERS: ATTEND Urology
DX: N20.0 Calculus of kidney (principal); C67.9 Malignant neoplasm of bladder, unspecified; Z93.6 Other artificial openings of urinary tract status; Z90.6 Acquired absence of other parts of urinary tract; G47.33 Obstructive sleep apnea (adult) (pediatric); I10 Essential (primary) hypertension; I49.9 Cardiac arrhythmia, unspecified; M06.9 Rheumatoid arthritis, unspecified; F03.90 Unspecified dementia, unspecified severity, without behavioral disturbance, psychotic disturbance, mood disturbance, and anxiety; Z88.1 Allergy status to other antibiotic agents; Z88.0 Allergy status to penicillin; Z01.818 Encounter for other preprocedural examination; Z79.899 Other long term (current) drug therapy; Z87.891 Personal history of nicotine dependence
CPT/HCPCS: 50590; 74018; J0330; J1100; J1580; J2003; J2405; J2704; J3010; J7121

== ENCOUNTER → 2025-04-16 | Outpatient (REF) | payer MEDICARE, BC ==
[~2025-04-16] MED LIST changes: -DEXAMETHASONE SOD PHOS INJ 4 MG/ML SDV ONE; -FENTANYL CITRATE/PF 100MCG/2 ML INJ ONE; +IOPAMIDOL 370 MG/ML 100 ML INFUS..BTL INJ ONE; -LIDOCAINE HCL 2% LOCAL INJ 5 ML SDV VIAL INJ ONE; -ONDANSETRON HCL INJ 2MG/ML 2ML 2 MG/ML VIAL ONE; -PROPOFOL IV EMULSION 10 MG/ML 20 ML VIAL ONE; +SODIUM CHLORIDE 0.9% 250ML 250 ML ONE; -SUCCINYLCHOLINE CHLORIDE 20 MG/ML 10ML VIAL ONE
[2025-04-16 09:01] LABS: EST GLOMERULAR FILTRATION RATE 96.0 ML/MIN (>=60)
== END ==
LOC: CT 07:47
PROVIDERS: ATTEND Urology
DX: R31.21 Asymptomatic microscopic hematuria (principal)
CPT/HCPCS: 36415; 74178; 82565; 84520; J7050; Q9967